=== PATIENT | female | born 1985 | race Caucasian/White ===

== ENCOUNTER 2020-01-07 05:04 | Inpatient (IN) | payer BC, OTHER, SELFPAY ==
--- NOTE | 2020-01-06 22:41 | WPDANESEPP ---
Anes - Eval Pre Procedure Procedure: Operation Date: 01/07/20 07:30 Proposed Procedures p Repeat Section - Domitila Massey MD Date/Time: 01/06/20 22:41 Pre Op Diagnosis: Pre-admit Patient Data Age: 34 Gender: F Height: Weight: Allergies Allergy/AdvReac Type Severity Reaction Status Date / Time Sulfa (Sulfonamide Allergy Intermediate rash, fever Verified 03/10/18 16:34 Antibiotics) Home Medications Medication Instructions Recorded Confirmed Type PNV cmb#95-ferrous fumarate-FA 1 tablet PO DAILY 12/18/19 12/18/19 History [] ergocalciferol (vitamin D2) 1,250 mcg PO WEEKLY 12/18/19 12/18/19 History [Vitamin D2] Patient hx anesthesia problems: none Family hx anesthesia problems: none PMFSH Family History Family History (Updated 12/18/19 @ 15:48 by Aleah Carrera RN) Mother Hypertension Father Hypertension Social History Social History Substance use: never Gender identity (if verbalized by the patient): Female Spiritual care concerns: No Exam Day of Procedure 01/06/20 22:41
[2020-01-07] VITALS (57 sets, daily range): BP systolic 74–128; BP diastolic 27–93; PULSE 50–167; RESP 14–18; TEMP 36.3–36.7; O2SAT 65–100; BMI 33.8
[2020-01-07 05:51] LABS: Basophils Percent Auto 0.4 % (0.2-1.2); Eosinophils Absolute Auto 0.1 K/mm3 (0-0.3); Hematocrit 39.3 % (37.0-47.0); Hemoglobin 12.9 g/dL (12.0-15.0); Immature Granulocyte Absolute 0.06 K/mm3 (0.00-0.031); Immature Granulocyte Percent A 1.2 % (0-0.5); Lymphocytes Absolute Auto 1.16 K/mm3 (0.9-3.2); Lymphocytes Percent Auto 22.4 % (18.3-44.2); Mean Corpuscular HGB Conc 32.8 g/dl (32-36); Mean Corpuscular Hemoglobin 28.4 pg (26-34); Mean Corpuscular Volume 86.4 fl (80-100); Mean Platelet Volume 9.8 fl (7.4-10.4); Monocytes Absolute Auto 0.6 K/mm3 (0.1-0.6); Monocytes Percent Auto 12.3 % (2.6-8.5); Neutrophils Absolute Auto 3.3 K/mm3 (1.3-6.7); Neutrophils Percent Auto 62.7 % (45.5-73.1); Platelet Count Result 216 k/mm3 (150-375); Red Blood Count 4.55 M/mm3 (4.2-5.4); Red Cell Distribution Width 13.2 % (11.5-14.5); White Blood Count 5.2 K/mm3 (4.5-10.0)
--- NOTE | 2020-01-07 06:37 | LDADM ---
This patient, Gia Montes, was admitted to Labor/Delivery/Recovery 120 on 01/07/20 at 05:04. Plans for planned section, pain management and were discussed with patient. Patient/family oriented to hospital policies and general routines including ID bracelet, bed and alarms, visiting hours, pain management, procedures, bathroom and other care routines, personal items, smoking policy, room service/diet and guest tray routines, security routines, and visiting hours. Patient/Family are encouraged to report perceived risks to care and to ask questions if they do not understand what they are told or what they should do. See OBIX for further documentation.
[2020-01-07] MEDS: LACTATED RINGERS 1,000 ML 999 ML IV CONT (06:39)
--- NOTE | 2020-01-07 07:00 | PC.NURSE ---
Explained to patient and her the recommendations for COVID positive mom's is to pump and have significant other bottle feed, and have a curtain between her and the baby, keep baby 6 feet away. Pt states she wants to breastfeed, informed her that she should wear her N95 mask the entire time she is holding and feeding baby. Pt states she will do that and had some questions about how long she needs to wear the mask when she goes home and if her has to wear the mask as well since he was positive 10 days ago. Informed her that dad should wear his mask as well and to call the [facility] for further guidelines with how and how long to be on isolation. Papers from given to parents. Pt understands that she is on isolation here and that staff will wear gowns, [id number], eye protection, and gloves when caring for her.
[2020-01-07] MEDS: ONDANSETRON INJ 4 MG/2 ML VIAL IV PUSH (07:10)
--- NOTE | 2020-01-07 07:17 | P.HP_ITS ---
H&P: HPI History of Present Illness Date/Time: 01/07/20 07:17 Chief complaint: section Narrative: Gia Montes is a 34 year old female at 39 3/7 wks here for repeat csection. Patient with + COVID19 2 days ago. Patient with minimal symptoms. uncomplicated to this point. labs: B+, Rubella Immune, RPR -, HIV -, HBSAg -. [facility] Surgical History Surgical History (Updated 01/07/20 @ 07:21 by Domitila Massey MD) History of low transverse section Family History Family History (Updated 12/18/19 @ 15:48 by Aleah Carrera RN) Mother Hypertension Father Hypertension Social History Social History Smoking status: Never smoker Substance use: never Gender identity (if verbalized by the patient): Female Spiritual care concerns: No Meds Home Medications and Allergies Home Medications Medication Instructions Recorded Confirmed Type PNV cmb#95-ferrous fumarate-FA 1 tablet PO DAILY 12/18/19 12/18/19 History [] ergocalciferol (vitamin D2) 1,250 mcg PO WEEKLY 12/18/19 12/18/19 History [Vitamin D2] Allergies Allergy/AdvReac Type Severity Reaction Status Date / Time Sulfa (Sulfonamide Allergy Intermediate rash, fever Verified 03/10/18 16:34 Antibiotics) Vital Signs Vital Signs - 24 hr 01/07/20 05:48 Pulse Rate 77 Blood Pressure 101/60 Exam Const: General: healthy appearing and alert Orientation/consciousness: patient oriented x3 Resp: Effort & Inspection: normal respiratory effort Auscultation: clear to auscultation bilaterally Cardio: Rate: regular rate Rhythm: regular rhythm GI: GI Palp: Yes Soft to palpation, No Tenderness to palpation present (GI) and No Palpable mass present : External Female Exam: normal external appearance Speculum Exam - Vagina: normal appearance of the vagina and normal vaginal discharge Speculum Exam - Cervix: normal appearance of the cervix Bimanual exam- vagina & uterus: uterine size normal and consistency normal Bimanual Exam- Adnexa, other: normal adnexae and No adnexal tenderness Neuro: General: patient oriented x3 H&P: Results Labs Labs: Short CBC 01/07/20 Range/Units 05:45 WBC 5.2 (4.5-10.0) K/mm3 Hgb 12.9 (12.0-15.0) g/dL Hct 39.3 (37.0-47.0) % Plt Count 216 (150-375) k/mm3 Assessment and Plan Assessment and plan (1) Previous delivery affecting : Code(s): O34.219 - Maternal care for unspecified type scar from previous delivery Status: Acute Assessment and Plan: Plan to proceed with repeat csection as patient declines trial of labor (2) 39 weeks gestation of : Code(s): Z3A.39 - 39 weeks gestation of Status: Acute (3) COVID-19: Code(s): U07.1 - COVID-19 Status: Acute Assessment and Plan: precautions for team will be taken per dima
[2020-01-07] MEDS: KETOROLAC 30 MG/ML VIAL (*BKC) IV PUSH (08:00)
[2020-01-07] MEDS: LACTATED RINGERS 1,000 ML 125 ML IV CONT (08:25)
[2020-01-07] MEDS: OXYTOCIN 30 UNITS/NS 500 ML 30 UNITS/500 ML BAG 125 UNITS IV CONT (08:25)
--- NOTE | 2020-01-07 08:25 | PM.PROC ---
Procedure Note - Detailed Date of procedure: 01/07/20 Pre-op diagnosis: section Prior csection IUP 39 wks +COVID19 Post-op diagnosis: same Procedure performed: repeat LTCS Description of procedure: The patient was taken to the operating room and placed under spinal anesthesia in the dorsal supine position with a leftward tilt. She was prepped and draped in usual sterile fashion. Once anesthesia was deemed adequate a Pfannenstiel skin incision was made through the prior incision and carried down to the underlying layer of fascia with scalpel. Bleeding vessels in the subcutaneous tissue were cauterized for hemostasis. The fascial incision is extended laterally using Vincent scissors. The fascial edges were grasped with [facility] tented and dissected off using sharp dissection due to adhesions. The rectus muscles were in the midline the peritoneum was tented with a Peon and entered with Metzenbaum. The incision is extended with blunt traction. The bladder blade is placed and the vesicouterine peritoneum is grasped with a Peon. The bladder flap was created using Metzenbaum scissors and blunt dissection. Bladder blade is replaced. The lower uterine segment was incised in a transverse fashion with the scalpel. The incision is extended laterally using blunt traction. Membranes were ruptured in the process. The 's head was brought up into the incision and delivered while the elementary assistant principal applied fundal pressure the remainder of the infant is delivered the cord is detained cold. The cord is clamped and cut and the infant handed to the waiting nursery nurse. The placenta is removed using manual traction after labs and gases were drawn. The uterus is cleared of all clots and debris and exteriorized. The uterine incision was closed using 0 Monocryl in a running lock fashion and same suture is used to imbricate. 2 additional [id number]-[id number] sutures are required in the midline for hemostasis. The cul-de-sac is irrigated and the uterus returned to the abdomen. The gutters were irrigated and the incision is again inspected and noted to be hemostatic. The fascia was then closed using 0 Vicryl in a running fashion. Subcutaneous tissues are irrigated and made hemostatic using Bovie cautery. Skin incisions closed using 4 0 Vicryl in a subcuticular fashion. Dermaflex is placed over the incision and the patient taken to recovery room. Sponge instrument and needle counts are correct per the OR staff and the patient received Ancef prior to skin incision. COVID-19 precautions are taken the entire time in the operating room by all staff members. Anesthesia: spinal Surgeon: Domitila Massey MD Estimated blood loss (mL): 280 Drains: Yes (briggs) Packing: No Pathology: none sent Complications: No immediate complications Condition: stable Disposition: floor Findings: female ; nuchal cord x 1; 8/9 Apgars; 7#14 oz; normal appearing tubes, ovaries, and uterus
--- NOTE | 2020-01-07 08:30 | PM.OBDSVD ---
DS: Admitting Diagnosis Admitting Diagnosis Admitting Diagnosis: Prior section IUP 39 wks COVID19+ DS: Discharge Diagnosis Discharge Diagnosis (1) delivery delivered: Code(s): O82 - Encounter for delivery without indication Status: Acute (2) Previous delivery affecting : Code(s): O34.219 - Maternal care for unspecified type scar from previous delivery Status: Acute (3) 39 weeks gestation of : Code(s): Z3A.39 - 39 weeks gestation of Status: Acute (4) COVID-19: Code(s): U07.1 - COVID-19 Status: Acute OB - DS: Summary OB Procedures : Ultrasound OB Procedures Intrapartum: low cervical, transverse OB Procedures: : None Peripartum Data Infant Delivery Method: Section Procedures: Procedures Operation Date: 01/07/20 07:30 <No data on this case meets the specified criteria> complications: none Status at Discharge Functional status at discharge: independent ambulation Overall status at discharge: patient is progressing back to baseline Time Spent with Patient Time attestation: Total time spent providing and/or coordinating discharge services: DS: Data Data Completed and Pending Labs on day of discharge: Labs from last 24 hours 01/07/20 01/07/20 01/07/20 05:45 05:45 05:45 WBC 5.2 RBC 4.55 Hgb 12.9 Hct 39.3 MCV 86.4 MCH 28.4 MCHC 32.8 RDW 13.2 Plt Count 216 MPV 9.8 Immature Gran % (Auto) 1.2 H Neut % (Auto) 62.7 Lymph % (Auto) 22.4 [place] % (Auto) 12.3 H Eos % (Auto) 1.0 Baso % (Auto) 0.4 Lymph # (Auto) 1.16 [place] # (Auto) 0.6 Eos # (Auto) 0.1 Baso # (Auto) 0.0 Abs Immat Gran (auto) 0.06 H Absolute Neuts (auto) 3.3 Absolute Nucleated RBC 0.0 Nucleated RBC % 0.0 RPR Pending Blood Type B Positive Antibody Screen Negative Discharge Plan Discharge Attending physician on discharge: Domitila Massey Discharging Clinician: Domitila Massey Anticipated Discharge Date/Time: 01/10/20 08:32 Patient Disposition: Home, Self-Care Activity: may shower, may drive after 2 weeks and pelvic rest Diet: regular Wound Care Instructions: incision open to air Discharge Instructions: Education: Mom and Baby Guide Given to: Mother Follow-Up: Call your delivering provider's office for an appointment to be seen in: 2 Weeks Mom and baby [facility] for the follow-up appointment. Appointment Date/Time: January 11, 2020 at 8:00 am What to expect at your follow-up visit: Physical Assessment Call [phone] if you are unable to keep your appointment time. BREAST CARE: * Wear a snug supportive bra. * For engorgement discomfort: Breast Feeding: * Apply warm moist washcloths * Express milk as needed to relieve engorgement * Wear loose clothing * For sore nipples: * Identify correct latch-on * Apply warm moist washcloths before and after nursing * Air dry nipples after nursing * May apply Lansinoh cream to nipples ABDOMINAL INCISION: (if applicable) * Allow incision to air dry * Do NOT use lotions for powders on your incision * When showering, allow soap and water to run over the incision, but do not wash incision EPISIOTOMY/PERINEAL CARE: * Until bleeding stops, use your goldy bottle after urinating * Change your pad frequently throughout the day * No tub baths until seen by your physician - You may shower ACTIVITY: * Rest as much as possible. * Do not exercise or lift anything heavier than your baby (such as laundry or other children.) * Avoid stairs or driving as much as possible. * Do not put anything into the vagina. No douching, tampons, or sexual activity until seen by physician. NOTIFY PHYSICIAN IF
[2020-01-07 11:16] LABS: Rapid Plasma Reagin Non-Reactive (NonReactive)
[2020-01-07] MEDS: HYDROcodone/acetaminophen (*CRX) 10-325 MG TABLET 1 TAB PO ×2 (17:28→20:33)
[2020-01-07] MEDS: IBUPROFEN 600 MG TABLET PO (20:33)
[2020-01-07] MEDS: DEXTROSE 5%/0.45% SOD CHL 1,000 ML 125 ML IV CONT (22:08)
[2020-01-07] MEDS: HYDROcodone/acetaminophen (*CRX) 5-325 MG TABLET 1 TAB PO (23:29)
[2020-01-08 01:56] VITALS: BP 105/64; PULSE 55; RESP 16; TEMP 36.4; O2SAT 100
[2020-01-08] MEDS: HYDROcodone/acetaminophen (*CRX) 5-325 MG TABLET 1 TAB PO ×3 (03:47→20:35)
[2020-01-08] MEDS: IBUPROFEN 600 MG TABLET PO ×3 (03:47→17:36)
[2020-01-08 04:11] VITALS: BP 101/62; PULSE 54; RESP 16; TEMP 36.4; O2SAT 100
[2020-01-08 05:16] LABS: Basophils Percent Auto 0.3 % (0.2-1.2); Eosinophils Absolute Auto 0.2 K/mm3 (0-0.3); Eosinophils Percent Auto 2.3 % (0-4.4); Hematocrit 35.3 % (37.0-47.0); Hemoglobin 11.5 g/dL (12.0-15.0); Immature Granulocyte Absolute 0.05 K/mm3 (0.00-0.031); Immature Granulocyte Percent A 0.8 % (0-0.5); Lymphocytes Absolute Auto 1.63 K/mm3 (0.9-3.2); Lymphocytes Percent Auto 24.8 % (18.3-44.2); Mean Corpuscular HGB Conc 32.6 g/dl (32-36); Mean Corpuscular Hemoglobin 28.9 pg (26-34); Mean Corpuscular Volume 88.7 fl (80-100); Mean Platelet Volume 10.4 fl (7.4-10.4); Monocytes Absolute Auto 0.6 K/mm3 (0.1-0.6); Monocytes Percent Auto 9.6 % (2.6-8.5); Neutrophils Absolute Auto 4.1 K/mm3 (1.3-6.7); Neutrophils Percent Auto 62.2 % (45.5-73.1); Platelet Count Result 185 k/mm3 (150-375); Red Blood Count 3.98 M/mm3 (4.2-5.4); Red Cell Distribution Width 13.5 % (11.5-14.5); White Blood Count 6.6 K/mm3 (4.5-10.0)
[2020-01-08 07:05] VITALS: BP 115/70; PULSE 55; RESP 20; TEMP 36.4; O2SAT 100
[2020-01-08] MEDS: HYDROcodone/acetaminophen (*CRX) 10-325 MG TABLET 1 TAB PO ×2 (08:13→14:45)
[2020-01-08] MEDS: DOCUSATE SODIUM 100 MG CAPSULE PO ×2 (08:13→17:36)
[2020-01-08] MEDS: MULTIVIT/MIN/PREN/FOL AC/IRON TABLET 1 TAB PO (08:13)
--- NOTE | 2020-01-08 11:34 | WPDANLDPN2 ---
Anes-Prog Note L&D Date/Time: 01/08/20 11:34 Comfortable throughout: section Neuraxial method: spinal Epidural/Spinal procedure site: clean & non-tender Neuro status: Neuro function grossly intact. Cardiovascular status: normal Respiratory status: normal Airway patency: baseline Mental status: baseline Post-Op hydration status: normal Vital Signs: Last Vital Signs Temp 36.4 C 01/08/20 07:05 Pulse 55 L 01/08/20 07:05 Resp 20 01/08/20 07:05 BP 115/70 01/08/20 07:05 Pulse Ox 100 01/08/20 07:05 Pain score (VAS): 03/20 I/O: Intake & Output 01/07/20 01/08/20 01/08/20 23:59 07:59 15:59 Intake Total 3700 Output Total 450 3600 Balance -450 100 Post-procedural complaints: none Patient feedback: Patient satisfied with anesthetic care.
--- NOTE | 2020-01-08 11:35 | WPDANLDNPN2 ---
Anes-Prog Note L&D-Neuraxial Date/Time: 01/08/20 11:35 Neuraxial medications: intrathecal PF morphine Opiod-related complaints: none Patient feedback: Patient satisfied with post-operative pain management.
--- NOTE | 2020-01-08 12:15 | PC.NURSE ---
Mother called out for assist with feeding . Consulted with patient, mother reports infant is feeding freq. and is concerned is not getting enough. Assured mother this is normal cluster feeding for newborns and may continue in spurts for several days. Reviewed feeding cues, frequencies, duration of feedings, feeding elimination flow sheet, and signs of adequate intake. Demonstrated stimulation techniques to wake infant for feeding. Assisted with infant to breast. Reviewed positioning/alignment in cross cradle, holding breast in U hold and guided asymmetrical latch on. Discussed the rational for each. was able to latch correctly. nursed in bursts with eager steady draws and occasional swallowing noted followed with long pausing. Advised to stimulate infant while feeding to keep awake and effectively feeding for increased intake and to assist with maintaining deep latch. Demonstrated how to adjust latch more deeply while feeding. Reviewed signs of a correct latch, effective nursing and suck swallow ratio. Infant was able to maintain latch without discomfort to mother. Nipple care reviewed. Instructed mother to call out for RN assistance if she is unable to latch for feeding or she has discomfort with nursing. Instructed feeding should be initiated three hours from start of last feeding or if feeding cues are noted before. Mother voiced understanding of information shared.
--- NOTE | 2020-01-08 12:15 | PM.OBPNVD ---
OB - PN: Subj Subjective Date/time seen: 01/08/20 12:15 Doing well incision pain otherwise doing okay. mild bleeding, pain medications work when taking. baby doing well. no other symptoms at this time. OB - PN: Obj Data Labs CBC & Chem 7: 01/08/20 03:43 Labs: Laboratory Results - last 24 hr 01/08/20 03:43 WBC 6.6 RBC 3.98 L Hgb 11.5 L Hct 35.3 L MCV 88.7 MCH 28.9 MCHC 32.6 RDW 13.5 Plt Count 185 MPV 10.4 Immature Gran % (Auto) 0.8 H Neut % (Auto) 62.2 Lymph % (Auto) 24.8 [place] % (Auto) 9.6 H Eos % (Auto) 2.3 Baso % (Auto) 0.3 Lymph # (Auto) 1.63 [place] # (Auto) 0.6 Eos # (Auto) 0.2 Baso # (Auto) 0.0 Abs Immat Gran (auto) 0.05 H Absolute Neuts (auto) 4.1 Absolute Nucleated RBC 0.0 Nucleated RBC % 0.0 OB - PN A/P Assessment and Plan (1) delivery delivered: Code(s): O82 - Encounter for delivery without indication Status: Acute Assessment and Plan: continue with pp care and COVID Isolation. plan discharge in am. Time Spent With Patient Time: Total time spent is greater than 50% in coordination of care (as documented) at patient's floor/unit and/or counseling patient: Exam GI: Other: inc c/d/i ff at umbilicus Extrem: Right upper extremity: edema
[2020-01-08 20:30] VITALS: BP 122/66; PULSE 66; RESP 16; TEMP 36.6; O2SAT 100
[2020-01-08] MEDS: SIMETHICONE 80 MG TAB.CHEW PO (20:35)
[2020-01-09] MEDS: IBUPROFEN 600 MG TABLET PO ×3 (01:04→17:07)
[2020-01-09] MEDS: HYDROcodone/acetaminophen (*CRX) 5-325 MG TABLET 1 TAB PO ×6 (02:38→21:03)
[2020-01-09 08:15] VITALS: BP 112/60; PULSE 93; RESP 20; TEMP 36.7; O2SAT 91
[2020-01-09] MEDS: DOCUSATE SODIUM 100 MG CAPSULE PO ×2 (08:46→17:07)
[2020-01-09] MEDS: MULTIVIT/MIN/PREN/FOL AC/IRON TABLET 1 TAB PO (08:46)
[2020-01-09] MEDS: LANOLIN (LANSINOH) 7.5 GM CREAM 1 APPLIC TOPICAL (08:47)
--- NOTE | 2020-01-09 10:29 | PM.OBPNVD ---
OB - PN: Subj Subjective Date/time seen: 01/09/20 10:29 S: doing well no complaints desires home today. having some after biirth pain with nursing otherwise denies any other symptoms. OB - PN: Obj Data Labs CBC & Chem 7: 01/08/20 03:43 OB - PN A/P Assessment and Plan (1) delivery delivered: Code(s): O82 - Encounter for delivery without indication Status: Acute Assessment and Plan: continue with pp care. will d/c home. Time Spent With Patient Time: Total time spent is greater than 50% in coordination of care (as documented) at patient's floor/unit and/or counseling patient: Exam Const: General: well developed GI: Other: incision: C/D/I ff below umbilicus abdominal binder in place.
[2020-01-09 20:00] VITALS: BP 100/79; PULSE 61; RESP 18; TEMP 36.4; O2SAT 100
[2020-01-10] MEDS: HYDROcodone/acetaminophen (*CRX) 5-325 MG TABLET 1 TAB PO ×3 (00:04→08:19)
[2020-01-10] MEDS: IBUPROFEN 600 MG TABLET PO ×2 (00:04→05:19)
--- NOTE | 2020-01-10 01:03 | PC.NURSE ---
Daylight Savings Time For Daylight Savings Time Ending in the Fall - Clocks are moved back. For Daylight Savings Time Beginning in the Spring - Clocks are moved ahead. For [facility], the time of change occurs at 0200 hrs. Time is taken from the locomotive observer. This entry on the patient's chart recognizes the change in time reflected during documentation. Example: 2 entries for vital signs may be charted for 0200 hrs.
[2020-01-10] MEDS: MULTIVIT/MIN/PREN/FOL AC/IRON TABLET 1 TAB PO (08:18)
[2020-01-10] MEDS: DOCUSATE SODIUM 100 MG CAPSULE PO (08:19)
[2020-01-10 08:30] VITALS: BP 124/67; PULSE 65; RESP 16; TEMP 36
--- NOTE | 2020-01-10 11:17 | PM.OBPNVD ---
OB - PN: Subj Subjective Date/time seen: 01/10/20 11:17 doing well found care for [age] year old OB - PN: Obj Data Labs CBC & Chem 7: 01/08/20 03:43 OB - PN A/P Assessment and Plan (1) COVID-19: Code(s): U07.1 - COVID-19 Status: Acute Assessment and Plan: d/c home with 14 day quarantine and continue with post op care. (2) delivery delivered: Code(s): O82 - Encounter for delivery without indication Status: Acute Time Spent With Patient Time: Total time spent is greater than 50% in coordination of care (as documented) at patient's floor/unit and/or counseling patient: Exam GI: Other: incision clean and intact
--- NOTE | 2020-01-10 12:50 | PC.NURSE ---
Patient discharged home with in [facility]. Discharged home on 01/10/2020 at 1250.
[2020-01-11 08:34] VITALS: BP 140/78; PULSE 88; RESP 20; O2SAT 96
== END 2020-01-10 12:50 | disposition home or self-care (01) | DRG 786 ==
LOC: ANHLDR 01-13 08:13 → ANHOB2 01-13 08:13
PROVIDERS: Admitting Provider Obstetrics & Gynecology Gynecology; Visit Provider Obstetrics & Gynecology
PROC: 10D00Z1 Extraction of Products of Conception, Low, Open Approach (ICD-10-PCS; CPT 59514; principal; 2020-01-07 07:30)
DX: O34.211 Maternal care for low transverse scar from previous cesarean delivery (principal); U07.1 COVID-19; O98.52 Other viral diseases complicating childbirth; Z37.0 Single live birth; Z3A.39 39 weeks gestation of pregnancy; O69.81X0 Labor and delivery complicated by cord around neck, without compression, not applicable or unspecified
CPT/HCPCS: 36415; 85025; 86592; 86850; 86900; 86901; A9270; J0131; J1885; J2175; J2274; J2405; J2590; J7120

== ENCOUNTER 2021-07-05 13:34 | Emergency (ER) | payer OTHER, SELFPAY ==
[2021-07-05 14:03] VITALS: BP 135/71; PULSE 88; RESP 18; TEMP 36.9; O2SAT 100
[2021-07-05 15:00] VITALS: O2SAT 100
[2021-07-05] MEDS: ONDANSETRON INJ 4 MG/2 ML VIAL IV PUSH (16:02)
[2021-07-05] MEDS: SODIUM CHLORIDE 0.9% IV 1,000 ML 999 ML IV CONT (16:02)
[2021-07-05 16:06] VITALS: BP 116/65; PULSE 78; RESP 15; TEMP 36.8; O2SAT 100
[2021-07-05 16:10] LABS: Basophils Percent Auto 0.2 % (0.2-1.2); Eosinophils Absolute Auto 0.1 K/mm3 (0-0.3); Eosinophils Percent Auto 0.9 % (0-4.4); Hematocrit 38.1 % (37.0-47.0); Hemoglobin 12.1 g/dL (12.0-15.0); Immature Granulocyte Absolute 0.03 K/mm3 (0.00-0.031); Immature Granulocyte Percent A 0.6 % (0-0.5); Lymphocytes Absolute Auto 1.46 K/mm3 (0.9-3.2); Lymphocytes Percent Auto 27.3 % (18.3-44.2); Mean Corpuscular HGB Conc 31.8 g/dl (32-36); Mean Corpuscular Hemoglobin 27.3 pg (26-34); Mean Corpuscular Volume 85.8 fl (80-100); Mean Platelet Volume 9.3 fl (7.4-10.4); Monocytes Absolute Auto 0.6 K/mm3 (0.1-0.6); Monocytes Percent Auto 11.6 % (2.6-8.5); Neutrophils Absolute Auto 3.2 K/mm3 (1.3-6.7); Neutrophils Percent Auto 59.4 % (45.5-73.1); Platelet Count Result 311 k/mm3 (150-375); Red Blood Count 4.44 M/mm3 (4.2-5.4); Red Cell Distribution Width 12.7 % (11.5-14.5); White Blood Count 5.3 K/mm3 (4.5-10.0)
[2021-07-05 16:24] LABS: Anion Gap 6 mmol/L (8-16); Blood Urea Nitrogen 6 mg/dL (7-17); Carbon Dioxide 26 mmol/L (22-30); Chloride 102 mmol/L (98-107); Estimated CRCL calculation 144 ml/min; Estimated Glomerular Filt Rate > 60; Glucose 91 mg/dL (65-110); Potassium 3.9 mmol/L (3.4-5.0); Sodium 134 mmol/L (137-145)
--- NOTE | 2021-07-05 17:12 | ED.GENADULT ---
HPI - General Adult General Chief complaint: Upper Respiratory Infection Stated complaint: flu A, 10 weeks Time Seen by Provider: 07/05/21 15:22 History of Present Illness HPI narrative: Patient is a 35-year-old female who presents ER with nausea and vomiting as well as dehydration. Patient recently diagnosed with influenza A. Patient had family that had influenza A. She was tested a week ago and was negative and then she went to [place] for a family member's wedding and reports it was worse week for life. She is having nausea and vomiting as well as body aches fevers and chills. When she returned she had a positive flu test. Patient was prescribed Tamiflu but vomited when she took it so she did not finish it. Patient reports she is 10 weeks along in her , she is a . No abdominal pain or vaginal bleeding. Patient tested negative for COVID-19. Related Data Home Medications Medication Instructions Recorded Confirmed PNV cmb#95-ferrous fumarate-FA 1 tablet PO DAILY 12/18/19 12/18/19 [] ergocalciferol (vitamin D2) 1,250 mcg PO WEEKLY 12/18/19 12/18/19 [Vitamin D2] Allergies Allergy/AdvReac Type Severity Reaction Status Date / Time Sulfa (Sulfonamide Allergy Intermediate rash, fever Verified 07/05/21 14:58 Antibiotics) Review of Systems Review of Systems: All systems reviewed & are unremarkable except as noted in HPI and below Constitutional: Constitutional: Denies chills, Reports fatigue and Denies fever(s) Gastrointestinal: Gastrointestinal: Denies abdominal pain, Reports nausea and Reports vomiting Genitourinary: Genitourinary: Denies abnormal vaginal bleeding, Denies nocturia and Denies dysuria Musculoskeletal: Musculoskeletal: Reports myalgias and Denies arthralgias [facility] Past Medical History Medical History (Updated 07/05/21 @ 20:01 by Edis Leo MD) Healthy female adult Surgical History Surgical History (Updated 01/07/20 @ 07:21 by Domitila Massey MD) History of low transverse section Family History Family History (Updated 12/18/19 @ 15:48 by Aleah Carrera RN) Mother Hypertension Father Hypertension Social History Social History Smoking status: Never smoker Substance use: never Gender identity (if verbalized by the patient): Female Spiritual care concerns: No Exam Narrative: GENERAL: Well-appearing, well-nourished, and in no acute distress. HEAD: Normocephalic, atraumatic. EYES: PERRL and EOMI. NECK: Supple. CHEST: Clear to auscultation. No respiratory distress. Heart: Regular rate and rhythm, normal peripheral pulses. EXTREMITIES: Normal range of motion. No edema. SKIN: Warm, dry, no rash. NEURO: Alert and oriented x3. PSYCH: Normal mood and affect. Course Course Emergency Course: Patient hydrated and given antiemetics. Feels improved. Labs unremarkable. Discharge home. Vital Signs Vital signs: Vital Signs Temperature 98.4 F 07/05/21 14:03 Pulse Rate 88 07/05/21 14:03 Respiratory Rate 18 07/05/21 14:03 Blood Pressure 135/71 07/05/21 14:03 Pulse Oximetry 100 07/05/21 14:03 Temperature 98.3 F 07/05/21 16:06 Pulse Rate 78 07/05/21 16:06 Respiratory Rate 15 07/05/21 16:06 Blood Pressure 116/65 07/05/21 16:06 Pulse Oximetry 100 07/05/21 16:06 Medical Decision Making Vital Signs Vital Signs: Vital Signs Temperature 98.4 F 07/05/21 14:03 Pulse Rate 88 07/05/21 14:03 Respiratory Rate 18 07/05/21 14:03 Blood Pressure 135/71 07/05/21 14:03 Pulse Oximetry 100 07/05/21 14:03 Temperature 98.3 F 07/05/21 16:06 Pulse Rate 78 07/05/21 16:06 Respiratory Rate 15 07/05/21 16:06 Blood Pressure 116/65 07/05/21 16:06 Pulse Oximetry 100 07/05/21 16:06 Lab Data Result diagrams: 07/05/21 16:05 07/05/21 16:05 Labs: Lab Results 07/05/21 07/05/21 Range/Units 16:05 16:05 WBC 5.3 (4.5-10.0)
== END 2021-07-05 17:37 | disposition home or self-care (01) ==
PROVIDERS: Emergency Provider Emergency Medicine
DX: J10.1 Influenza due to other identified influenza virus with other respiratory manifestations (principal)
CPT/HCPCS: 36415; 80048; 85025; 96361; 96374; 99284; J2405; J7030

== ENCOUNTER → 2021-09-04 15:25 | Outpatient (CLI) | payer OTHER, SELFPAY ==
--- NOTE | ~2021-09-04 | US_ITS ---
US OB /maternal detail DATE: 09/04/2021 16:03 INDICATION: anatomy scan TECHNIQUE: Real-time imaging and Doppler analysis COMPARISON: None FINDINGS: Live dalton intrauterine gestation, fetus in breech presentation with heart rate o f 149 bpm. Anterior placenta. Subjectively normal amount of amniotic fluid. ventricles, cerebellum, cisterna magna and nuchal fold appear within normal limits. Normal feta l upper lip. spine appears normal on transverse and longitudinal images. 4 chamber heart. Normal left and right ventricular outflow tracts. The diaphragm is intact. Fluid is demonstrat ed in the stomach and urinary bladder. No evidence of hydronephrosis. Three-vessel umbilical cord with normal insertion at abdominal wall. extremities appear n ormal. Biparietal diameter 4.48 cm; 19 weeks 4 days Head circumference 16.16 cm; 19 weeks 0 days Abdominal circumference 13.14 cm; 18 weeks 5 days Femur length 2.86 cm; 18 weeks 5 days Composite age by Stephan formula is 19 weeks +/- 1 week 2 days with ABHIJEET of 01/29/2022, identical to ABHIJEET by LMP. Estimated weight is 256.4 +/- 38.5 grams. Estimated weight GP: 31.9% Head circumference/abdominal circumference 1.23, within normal range of 1.09-1.26. Femur length/head circumference 17.71, within normal range of 16.10-18.30 IMPRESSION: Estimated gestational age is 19 weeks +/- 1 week 2 days; ABHIJEET: 01/29/2022 Normal anatomy screen Breech presentation Reviewed, dictated and finalized at [facility]. Reviewed, dictated and finalized at [facility]. IMPRESSION: Estimated gestational age is 19 weeks +/- 1 week 2 days; ABHIJEET: 01/29 Normal anatomy screen Breech presentation
== END ==
PROVIDERS: PCP Advanced Practice Midwife; Visit Provider Advanced Practice Midwife
DX: O32.1XX0 Maternal care for breech presentation, not applicable or unspecified (principal); Z3A.19 19 weeks gestation of pregnancy
CPT/HCPCS: 76805

== ENCOUNTER 2021-11-06 14:55 | Outpatient (RCR) | payer OTHER, SELFPAY ==
[2021-11-06 16:18] VITALS: BP 117/61; PULSE 62
== END 2022-02-04 23:59 | disposition home or self-care (01) ==
LOC: ANHOBOP 14:55
PROVIDERS: Visit Provider Obstetrics & Gynecology Gynecology
DX: O36.8130 Decreased fetal movements, third trimester, not applicable or unspecified (principal); Z3A.40 40 weeks gestation of pregnancy
CPT/HCPCS: 59025

== ENCOUNTER 2022-01-20 10:16 | Outpatient (CLI) | payer OTHER, SELFPAY ==
[2022-01-20 10:35] LABS: Hematocrit 40.3 % (37.0-47.0); Mean Corpuscular HGB Conc 32.3 g/dl (32-36); Mean Corpuscular Hemoglobin 29.3 pg (26-34); Mean Platelet Volume 9.6 fl (7.4-10.4); Platelet Count Result 228 k/mm3 (150-375); Red Blood Count 4.43 M/mm3 (4.2-5.4); Red Cell Distribution Width 13.5 % (11.5-14.5); White Blood Count 7.6 K/mm3 (4.5-10.0)
[2022-01-22 07:13] LABS: Rapid Plasma Reagin Non-Reactive (NonReactive)
== END 2022-01-20 10:17 | disposition home or self-care (01) ==
LOC: ANHLAB 10:18
PROVIDERS: Visit Provider Obstetrics & Gynecology Gynecology
DX: Z01.818 Encounter for other preprocedural examination (principal)
CPT/HCPCS: 36415; 85027; 86592; 86850; 86900; 86901

== ENCOUNTER 2022-01-22 05:30 | Inpatient (IN) | payer OTHER, SELFPAY ==
--- NOTE | 2022-01-02 13:03 | PC.NURSE ---
Verified with OR schedule and patient --c/s with tubal ligation on 01/22/22 at 0730 Patient given requisition for lab drawn on 01/20/22
[2022-01-22] VITALS (53 sets, daily range): BP systolic 97–141; BP diastolic 48–104; PULSE 25–209; RESP 15–21; TEMP 36.1–37.4; O2SAT 89–100; BMI 37.9
--- NOTE | 2022-01-22 05:59 | LDADM ---
This patient, Gia Montes, was admitted to Labor/Delivery/Recovery 120 on 01/22/22 at 05:30. Plans for labor, pain management and were discussed with patient. Patient/family oriented to hospital policies and general routines including ID bracelet, bed and alarms, visiting hours, pain management, procedures, bathroom and other care routines, personal items, smoking policy, room service/diet and guest tray routines, security routines, and visiting hours. Patient/Family are encouraged to report perceived risks to care and to ask questions if they do not understand what they are told or what they should do. See OBIX for further documentation.
[2022-01-22] MEDS: LACTATED RINGERS 1,000 ML 125 ML IV CONT (06:15)
--- NOTE | 2022-01-22 06:55 | WPDANESEPPF ---
Anes - Initial Pre Proc Eval Procedure: Operation Date: 01/22/22 07:30 Proposed Procedures p Repeat Section with Possible Bilateral Tubal Ligation - Domitila Massey MD Date/Time: 01/22/22 06:55 Surgeon: Domitila Massey MD Pre Op Diagnosis: c/s Patient Data Age: 36 Gender: F Height: 1.78 m Weight: 120 kg Last Vital Signs Temp 36.6 C 01/22/22 06:29 Pulse 84 01/22/22 06:29 BP 122/74 01/22/22 06:29 O2 Del Method Room Air 01/22/22 05:58 Allergies Allergy/AdvReac Type Severity Reaction Status Date / Time Sulfa (Sulfonamide Allergy Intermediate rash, fever Verified 01/22/22 06:18 Antibiotics) Home Medications Medication Instructions Recorded Confirmed Type ergocalciferol (vitamin D2) 1,250 1,250 mcg PO WEEKLY 12/18/19 01/22/22 History mcg (50,000 unit) capsule (Vitamin D2) vit no.95-ferrous 1 tablet PO DAILY 12/18/19 01/22/22 History fumarate 28 mg-folic acid 800 mcg tablet () Patient hx anesthesia problems: none Family hx anesthesia problems: none Results Review: All pre-operative results and documents have been reviewed as part of the pre-operative evaluation. FORMERLY [facility], [facility] Past Medical History Medical History (Updated 07/06/21 @ 00:00 by Cong Bateman) Healthy female adult Surgical History Surgical History (Updated 01/07/20 @ 07:21 by Domitila Massey MD) History of low transverse section Family History Family History Mother Hypertension Father Hypertension Social History Social History Smoking status: Never smoker Second hand tobacco smoke exposure: No Substance use: never Lack of Transportation: No Lack of Food: Never True Current Housing: I Have Housing Concerned About Future Housing: No Difficulty Paying Gas/Electric Bills: No Difficulty Paying for Meds: No Currently Unemployed: No Education: Master's Degree or Higher Difficulty w/ Childcare or Family Care: No Gender identity (if verbalized by the patient): Female Spiritual care concerns: No Anes - Eval Final PreProcedure Day of Procedure 01/22/22 06:55 Patient weight: obese Heart: regular rate and rhythm Lungs: clear to auscultation and normal air movement Airway: Mallampati scale class II Neurological: alert and oriented Last oral intake: >/= 8 hours ASA classification: II Emergent: no Anesthetic plan: proceed Anesthesia type and monitoring: regional spinal Results Review: All pre-operative results and documents have been reviewed as part of the pre-operative evaluation. Informed Consent: The patient's anesthetic plan and its attendant risks and benefits were discussed with the patient/family/POA. Questions were solicited and answers provided to the satisfaction of the patient/family/POA.
--- NOTE | 2022-01-22 07:15 | WPDHPUPDATE1 ---
History and Physical Update Update Date/Time: 01/22/22 07:15 History and Physical has been reviewed, including an updated exam of the patient. There are NO changes in the patient's condition. Risks, benefits, and alternatives have been discussed and questions answered. Patient agrees to proceed with procedure.
--- NOTE | 2022-01-22 07:15 | PM.IMHP ---
H&P: HPI History of Present Illness Date/Time: 01/22/22 07:15 Chief Complaint: Repeat Narrative: The patient is a 36-year-old admitted at 39 weeks for a repeat and bilateral tubal ligation. The patient's current has been uncomplicated. labs B positive, rubella immune, RPR negative, hepatitis-B surface antigen negative, HIV negative, group B strep negative. Review of Systems Review of Systems: Good movements no complaints PMFSH Past Medical History Medical History (Updated 01/22/22 @ 07:19 by Domitila Massey MD) Healthy female adult Surgical History Surgical History (Updated 01/22/22 @ 07:19 by Domitila Massey MD) History of low transverse section x2 History of sinus surgery History of tonsillectomy Family History Family History Mother Hypertension Father Hypertension Social History Social History Smoking status: Never smoker Second hand tobacco smoke exposure: No Substance use: never Lack of Transportation: No Lack of Food: Never True Current Housing: I Have Housing Concerned About Future Housing: No Difficulty Paying Gas/Electric Bills: No Difficulty Paying for Meds: No Currently Unemployed: No Education: Master's Degree or Higher Difficulty w/ Childcare or Family Care: No Gender identity (if verbalized by the patient): Female Spiritual care concerns: No Meds Home Medications and Allergies Home Medications Medication Instructions Recorded Confirmed Type ergocalciferol (vitamin D2) 1,250 1,250 mcg PO WEEKLY 12/18/19 01/22/22 History mcg (50,000 unit) capsule (Vitamin D2) vit no.95-ferrous 1 tablet PO DAILY 12/18/19 01/22/22 History fumarate 28 mg-folic acid 800 mcg tablet () Allergies Allergy/AdvReac Type Severity Reaction Status Date / Time Sulfa (Sulfonamide Allergy Intermediate rash, fever Verified 01/22/22 06:18 Antibiotics) Vital Signs Vital Signs - 24 hr 01/22/22 06:29 01/22/22 07:01 01/22/22 05:58 Temperature Pulse Rate 84 87 Blood Pressure 122/74 112/74 Oxygen Delivery Room Air 01/22/22 06:29 Temperature 97.8 F Pulse Rate Blood Pressure Oxygen Delivery Exam Const: General: healthy appearing and alert Orientation/consciousness: patient oriented x3 Resp: Effort & Inspection: normal respiratory effort GI: GI Palp: Yes Soft to palpation, No Tenderness to palpation present (GI) and Yes Other GI palpation findings present ( fundal height 40 cm) : External Female Exam: normal external appearance Speculum Exam - Vagina: normal appearance of the vagina and normal vaginal discharge Speculum Exam - Cervix: normal appearance of the cervix Bimanual exam- vagina & uterus: consistency normal Bimanual Exam- Adnexa, other: normal adnexae and No adnexal tenderness Neuro: General: patient oriented x3 Assessment and Plan Assessment and plan (1) 39 weeks gestation of : Code(s): Z3A.39 - 39 weeks gestation of Status: Acute (2) History of low transverse section: Code(s): Z98.891 - History of uterine scar from previous surgery Status: Acute Assessment and Plan: plan to proceed with repeat section (3) Encounter for sterilization: Code(s): Z30.2 - Encounter for sterilization Status: Acute Assessment and Plan: plan to proceed with bilateral tubal ligation
[2022-01-22] MEDS: ceFAZolin 2 GM/D5W 50 ML 2 GM/50 ML BAG IVPB (07:25)
--- NOTE | 2022-01-22 08:21 | W.PM.PROC2 ---
Procedure Note - Detailed Date of Procedure 01/22/22 Pre-op Diagnosis Intrauterine at 39 weeks previous section x2 request sterilization Post-op Diagnosis Same Procedure Performed repeat low-transverse section and bilateral tubal ligation Surgeon Domitila Massey MD Anesthesia Spinal Findings uterus, tubes, and ovaries appeared normal; male with 8 and 9 weighing 8 lb 11 oz Description of Procedure The patient is taken to the operating room and placed under anesthesia in the dorsal supine position with a leftward tilt. Once anesthesia was deemed adequate she is prepped and draped in the usual sterile fashion. Pfannenstiel skin incision was made with a scalpel and carried down to the underlying layer of fascia which was nicked in the midline. The incision was extended laterally with Vincent scissors. Ochsner was used to tent the fascia which was then dissected off using sharp and blunt dissection. The rectus muscles are in the midline and the peritoneum entered. The incision was extended with blunt traction. The bladder blade is placed and the vesicouterine peritoneum tented and entered with Metzenbaum scissors. The incision was extended laterally using Metzenbaum scissors. The bladder flap was created digitally. The lower uterine segment was incised in a transverse fashion with a scalpel. Membranes are ruptured and clear fluid noted. The incision was extended bluntly. The head was brought into the incision and delivered while the assistant reading teacher applied fundal pressure. The was fully delivered and the cord clamped and cut. The infant was handed to the waiting nursery nurse. The placenta is removed moved using manual traction after cord gases and cord blood were taken. The placenta is sent for storage. The uterus is cleared of all clots and debris and exteriorized. The uterine incision was closed using 0 Monocryl in a running locked fashion. Same suture was used to imbricate. Good hemostasis is noted. The right tube was grasped with a Aimwell and crossclamped leaving approximately a 2cm portion at the cornea. The tube was excised and the pedicle tied off using 0 Vicryl Blanca stitch and free tie. The identical procedure was performed on the left. Good hemostasis is noted at both tubal sites. The cul-de-sac is irrigated and the uterus returned to the abdomen. The incisions were all again inspected noted to be hemostatic. The fascia was closed using 0 Vicryl in a running fashion. Subcutaneous tissue is irrigated and made hemostatic using Bovie cautery. Skin is closed using 4 0 Vicryl in a subcuticular fashion. Dermaflex was placed over the incision. Sponge, needle, and instrument counts are correct per the OR staff. Patient is taken to recovery in stable condition. Estimated Blood Loss 245 Drains Yes ( Ramsey catheter) Packing No Pathology Yes ( bilateral tubes) Complications No immediate complications Condition Stable Disposition Floor
--- NOTE | 2022-01-22 08:26 | P.DS_ITS ---
DS: Admitting Diagnosis Discharge Date 01/25/22 Admitting Diagnosis intrauterine at 39 weeks previous section x2 request sterilization DS: Discharge Diagnosis Discharge Diagnosis (1) delivery delivered: Code(s): O82 - Encounter for delivery without indication Status: Acute (2) History of low transverse section: Code(s): Z98.891 - History of uterine scar from previous surgery Status: Acute (3) 39 weeks gestation of : Code(s): Z3A.39 - 39 weeks gestation of Status: Acute (4) Encounter for sterilization: Code(s): Z30.2 - Encounter for sterilization Status: Acute OB - DS: Summary OB Procedures : NST and Ultrasound OB Procedures Intrapartum: low cervical, transverse OB Procedures: : None Peripartum Data Delivery Method: Section Procedures: Procedures Operation Date: 01/22/22 07:30 <No data on this case meets the specified criteria> complications: none Status at Discharge Functional status at discharge: independent ambulation Overall status at discharge: patient is progressing back to baseline Time Spent with Patient Time attestation: Total time spent providing and/or coordinating discharge services: Discharge Plan Discharge Attending physician on discharge: Domitila Massey Discharging Clinician: Domitila Massey Anticipated Discharge Date/Time: 01/24/22 08:27 Patient Disposition: Home, Self-Care Activity: may shower, may drive after 2 weeks and pelvic rest Diet: regular Wound Care Instructions: incision open to air Patient Instructions: Antibiotic Form Stand Alone Forms: General Discharge Information Follow-up/Referrals: Domitila Massey MD [Physician] - 1 Week ( and 6 weeks) Discharge Medications: New hydrocodone-acetaminophen 5-325 mg tablet 1 tablet PO Q4H PRN (Reason: pain) Qty: 20 0RF docusate sodium [Colace] 100 mg capsule 100 mg PO BID Qty: 60 0RF Continued ergocalciferol (vitamin D2) [Vitamin D2] 1,250 mcg (50,000 unit) Capsule 1,250 mcg PO WEEKLY PNV cmb#95-ferrous fumarate-FA [] 28 mg iron- 800 mcg Tablet 1 tablet PO DAILY Date of admission: 01/22/22 05:30 Primary Care Provider: PHYSICIAN,FLIGHT ENGINEER HELICOPTER Admitting Provider: Domitila Massey Attending physician on admission: Domitila Massey Condition: Stable
--- NOTE | 2022-01-22 09:50 | PC.NURSE ---
LR scanned at 125. Started at 125 ml/hr then bolused prior to C/s
[2022-01-22] MEDS: MORPHINE SULFATE INJ (*CRX) 10 MG/ML AMP 2 MG IV PUSH (10:23)
--- NOTE | 2022-01-22 10:48 | PC.NURSE ---
Report given to Imelda Cleary RN.
--- NOTE | 2022-01-22 11:28 | OBPPTRN ---
1101-Patient transferred to post room #287 via stretcher. Support person present. Oriented to unit, room, information board, rooming in, admission packet and security measures. Patient verbalizes understanding.
[2022-01-22] MEDS: DEXTROSE 5%/0.45% SOD CHL 1,000 ML 125 ML IV CONT (11:43)
[2022-01-22] MEDS: KETOROLAC 30 MG/ML VIAL (*BKC) IV PUSH (11:44)
[2022-01-22] MEDS: IBUPROFEN 600 MG TABLET PO (17:55)
[2022-01-22] MEDS: DOCUSATE SODIUM 100 MG CAPSULE PO (17:55)
[2022-01-22] MEDS: HYDROcodone/acetaminophen (*CRX) 5-325 MG TABLET 1 TAB PO (17:56)
[2022-01-23] MEDS: HYDROcodone/acetaminophen (*CRX) 5-325 MG TABLET 1 TAB PO ×5 (00:11→19:10)
[2022-01-23] MEDS: IBUPROFEN 600 MG TABLET PO ×4 (00:11→19:11)
[2022-01-23 00:20] VITALS: BP 121/74; PULSE 76; RESP 18; TEMP 36.8; O2SAT 98
[2022-01-23 05:35] VITALS: BP 133/67; PULSE 74; RESP 20; TEMP 37; O2SAT 97
[2022-01-23 06:12] LABS: Basophils Percent Auto 0.2 % (0.2-1.2); Eosinophils Absolute Auto 0.2 K/mm3 (0-0.3); Eosinophils Percent Auto 1.8 % (0-4.4); Hematocrit 36.3 % (37.0-47.0); Hemoglobin 11.4 g/dL (12.0-15.0); Immature Granulocyte Percent A 1.2 % (0-0.5); Lymphocytes Absolute Auto 1.31 K/mm3 (0.9-3.2); Lymphocytes Percent Auto 15.8 % (18.3-44.2); Mean Corpuscular HGB Conc 31.4 g/dl (32-36); Mean Corpuscular Hemoglobin 28.9 pg (26-34); Mean Corpuscular Volume 92.1 fl (80-100); Mean Platelet Volume 9.8 fl (7.4-10.4); Monocytes Absolute Auto 0.8 K/mm3 (0.1-0.6); Platelet Count Result 201 k/mm3 (150-375); Red Blood Count 3.94 M/mm3 (4.2-5.4); Red Cell Distribution Width 13.7 % (11.5-14.5); White Blood Count 8.3 K/mm3 (4.5-10.0)
--- NOTE | 2022-01-23 07:55 | PM.OBPNVD ---
OB - PN: Subj Subjective Date/time seen: 01/23/22 07:55 Patient comments: no complaints and pain well controlled baby status: doing well OB - PN: Obj Data Labs CBC & Chem 7: 01/23/22 05:15 Labs: Laboratory Results - last 24 hr 01/23/22 05:15 WBC 8.3 RBC 3.94 L Hgb 11.4 L Hct 36.3 L MCV 92.1 MCH 28.9 MCHC 31.4 L RDW 13.7 Plt Count 201 MPV 9.8 Immature Gran % (Auto) 1.2 H Neut % (Auto) 72.0 Lymph % (Auto) 15.8 L Caroline % (Auto) 9.0 H Eos % (Auto) 1.8 Baso % (Auto) 0.2 Lymph # (Auto) 1.31 Caroline # (Auto) 0.8 H Eos # (Auto) 0.2 Baso # (Auto) 0.0 Abs Immat Gran (auto) 0.10 H Absolute Neuts (auto) 6.0 Absolute Nucleated RBC 0.0 Nucleated RBC % 0.0 OB - PN A/P Plan day: 1 Plan: routine care Time Spent With Patient Time: Total time spent is greater than 50% in coordination of care (as documented) at patient's floor/unit and/or counseling patient: Exam Narrative: inc c/d/i : Bimanual exam- vagina & uterus: other (Uterus firm, nt @U)
[2022-01-23 08:20] VITALS: BP 125/78; PULSE 88; RESP 18; TEMP 37.7; O2SAT 97
[2022-01-23] MEDS: DOCUSATE SODIUM 100 MG CAPSULE PO ×2 (09:40→19:10)
--- NOTE | 2022-01-23 10:44 | PC.NURSE ---
[id number] Introductions were made, then consulted with patient to assess needs related to . Mother led the conversation with her?plans to feed?her infant and the?experience so far. Mother states she has tenderness especially on the left nipple. Resources provided for inpatient and outpatient services using mom/baby guide. Mother voiced understanding of information and is open for assessment of latch. Mother attempts to latch while crying. The infant's tongue pulls a little tight and is lifted up when he cries so mother was encouraged to calm with skin to skin, wait for and encourage a big, open, side gape, then latch with a mouthful to infant. Mother has history with her other two children. Mother has good technique and effective latched to the right breast using football positioning denying pain with . Reported to primary RN.
--- NOTE | 2022-01-23 11:12 | WPDANLDNPN2 ---
Anes-Prog Note L&D-Neuraxial Date/Time: 01/23/22 11:12 Neuraxial medications: intrathecal PF morphine Opiod-related complaints: none Patient feedback: Patient satisfied with post-operative pain management.
--- NOTE | 2022-01-23 11:12 | WPDANLDPN2 ---
Anes-Prog Note L&D Date/Time: 01/23/22 11:12 Comfortable throughout: section Neuraxial method: spinal Epidural/Spinal procedure site: clean & non-tender Neuro status: Neuro function grossly intact. Cardiovascular status: normal Respiratory status: normal Airway patency: baseline Mental status: baseline Post-Op hydration status: normal Vital Signs: Last Vital Signs Temp 99.9 F H 01/23/22 08:20 Pulse 88 01/23/22 08:20 Resp 18 01/23/22 08:20 BP 125/78 01/23/22 08:20 Pulse Ox 97 01/23/22 08:20 O2 Del Method Room Air 01/23/22 09:40 Pain score (VAS): 0 I/O: Intake & Output 01/22/22 01/23/22 01/23/22 23:59 07:59 15:59 Intake Total 2129 450 Output Total 1650 750 600 Balance 479 -300 -600 Post-procedural complaints: none Patient feedback: Patient satisfied with anesthetic care.
[2022-01-23 19:15] VITALS: BP 116/84; PULSE 77; RESP 18; TEMP 37.1
[2022-01-24] MEDS: HYDROcodone/acetaminophen (*CRX) 5-325 MG TABLET 1 TAB PO ×5 (00:48→20:07)
[2022-01-24] MEDS: IBUPROFEN 600 MG TABLET PO ×4 (00:49→20:05)
--- NOTE | 2022-01-24 06:35 | PM.OBPNVD ---
OB - PN: Subj Subjective Date/time seen: 01/24/22 06:35 Patient comments: no complaints and pain well controlled baby status: nursing well and other (vomiting and increased stools) OB - PN: Obj Data Labs CBC & Chem 7: 01/23/22 05:15 OB - PN A/P Plan day: 2 Plan: routine care Time Spent With Patient Time: Total time spent is greater than 50% in coordination of care (as documented) at patient's floor/unit and/or counseling patient: Exam Narrative: inc c/d/i : Bimanual exam- vagina & uterus: other (Uterus firm, nt @U)
[2022-01-24] MEDS: DOCUSATE SODIUM 100 MG CAPSULE PO ×2 (07:19→20:13)
[2022-01-24 08:20] VITALS: BP 113/61; PULSE 81; RESP 16; TEMP 37.4; O2SAT 98
--- NOTE | 2022-01-24 16:44 | PC.NURSE ---
[id number] Mother verbalizes she is able to independently latch with appropriate positioning/alignment. She denies any nipple discomfort and is responsively . is currently meeting outcomes for weight, output, jaundice and feeding frequencies of 8-12 times in 24 hours. Mother discusses the concern that a nurse had for losing close to 10% of his weight. Reviewed test results of the TCB, weight loss, voids and stools since . Mother states she feels like her milk is coming in and was encouraged to gently massage and compress her breast softly as nurses at the breast to increase swallowing. Mother declines any additional assistance/education at this time. Mother is encouraged to call for assistance if her doesn?t latch or there is discomfort with latching. Mother voiced understanding of information shared and mom and baby guide reviewed for additional resource information.
[2022-01-24 20:15] VITALS: BP 130/89; PULSE 62; RESP 16; TEMP 36.4; O2SAT 98
[2022-01-25] MEDS: HYDROcodone/acetaminophen (*CRX) 5-325 MG TABLET 1 TAB PO ×2 (03:23→10:42)
[2022-01-25] MEDS: IBUPROFEN 600 MG TABLET PO ×2 (03:25→10:41)
--- NOTE | 2022-01-25 07:41 | PM.OBPNVD ---
OB - PN: Subj Subjective Date/time seen: 01/25/22 07:41 Patient comments: no complaints and pain well controlled baby status: doing well OB - PN: Obj Data Labs CBC & Chem 7: 01/23/22 05:15 OB - PN A/P Plan day: 3 Plan: routine care and discharge home Time Spent With Patient Time: Total time spent is greater than 50% in coordination of care (as documented) at patient's floor/unit and/or counseling patient: Exam Narrative: inc c/d/i : Bimanual exam- vagina & uterus: other (Uterus firm, nt @U)
[2022-01-25 08:05] VITALS: BP 124/78; PULSE 72; RESP 16; TEMP 37.6; O2SAT 99
[2022-01-25] MEDS: DOCUSATE SODIUM 100 MG CAPSULE PO (08:14)
--- NOTE | 2022-01-25 13:50 | PC.NURSE ---
[id number] Mother led the conversation with her experience and plan to feed her so far and her ability to independently latch optimally without discomfort. Mother is feeding appropriately for growth of and understands stimulating infant to eat if needed. has had appropriate feedings in the last 24 hours meets the outcomes for weight, output (large transitional stool diaper changed), jaundice and results were reviewed at this time. Mother states she is confident to continue effectively her at home and she feels her milk has come in , when to call for assistance and denies any additional assistance or education at this time. Reinforced understanding of milk production, transition of milk, signs of adequate intake, prevention/relief of engorgement, responsive after visualizing feeding cues, the different methods of stimulating to breastfeed 2-3 hours after the start of the last feeding, community resources, medication information reviewed per [facility] and when to call a provider using the resource of the mom and baby guide/[facility] website. Mother voiced understanding of the education shared. Reported to the primary RN.
--- NOTE | 2022-01-25 14:00 | PC.NURSE ---
Patient viewed the discharge video Mother & Baby Care, The First Two Weeks . Patient was given the opportunity and encouraged to ask questions. Patient verbalized understanding of information shared and has been given the mother/baby guide for home reference.
[2022-01-27 11:53] VITALS: BP 133/84; PULSE 62; RESP 20; TEMP 37.1; O2SAT 98
== END 2022-01-25 13:35 | disposition home or self-care (01) | DRG 785 ==
LOC: ANHLDR 08:28 → ANHOB2 11:04
PROVIDERS: Admitting Provider Obstetrics & Gynecology Gynecology; Visit Provider Obstetrics & Gynecology Gynecology
PROC: 10D00Z1 Extraction of Products of Conception, Low, Open Approach (ICD-10-PCS; CPT 59514; principal; 2022-01-22 07:30)
DX: O34.219 Maternal care for unspecified type scar from previous cesarean delivery (principal); Z30.2 Encounter for sterilization; Z3A.39 39 weeks gestation of pregnancy; Z37.0 Single live birth
CPT/HCPCS: 36415; 85025; 88302; A9270; J0690; J1885; J2270; J2274; J3010; J7120

== ENCOUNTER 2023-06-27 11:48 | Outpatient (CLI) | payer OTHER, SELFPAY ==
--- NOTE | ~2023-06-27 | MMUS_ITS ---
EXAMINATION: MM diagnostic melisa BI w kain, US breast BI complete HISTORY: Palpable breast lump TECHNIQUE: Additional 3-D tomosynthesis images of the breasts were performed and synthetic 2-D images were generated. CAD analysis was submitted and interpreted. High resolution bilateral complete breas t ultrasound was performed. COMPARISON: None BREAST PARENCHYMAL COMPOSITION: Dense: The breasts are extremely dense, which lowers the sensitivity of mammography. FINDINGS: MAMMOGRAPHIC FINDINGS: There are no suspicious masses, calcifications or architectural distortion in either breast to sugges t malignancy. ULTRASOUND: Complete bilateral US of all 4 quadrants of the breasts and retroareolar region was reviewed. Normal heterogeneous echotexture without focal solid or cystic mass. IMPRESSION: 1. No evidence for malignancy in either breast. 2. Routine yearly screening mammogram beginning at age 40 and regular clinical breast examination are recommended. BI-RADS Category 1: Negative Reviewed, dictated and finalized at location B. IMPRESSION: 1. No evidence for malignancy in either breast. 2. Routine yearly screening mammogram beginning at age 40 and regular clinical breast examination are recommended. BI-RADS Category 1: Negative
== END 2023-06-27 11:49 ==
PROVIDERS: PCP Obstetrics & Gynecology Gynecology; Visit Provider Obstetrics & Gynecology Gynecology
DX: N63.20 Unspecified lump in the left breast, unspecified quadrant (principal)
CPT/HCPCS: 76641; 77062; 77066; G0279